=== PATIENT | female | born 1950 | race Caucasian/White ===

== ENCOUNTER 2025-03-23 05:52 | Day surgery (SDC) | payer MEDICARE, OTHER ==
[2025-03-22 11:16] VITALS: BMI 21.4
[2025-03-23] MEDS ORDERED: Lidocaine 1% w/Epinephrine 1:200K 30 ML VIAL ONE (06:16)
[2025-03-23] MEDS ORDERED: SUGAMMADEX SODIUM 200 MG/2 ML VIAL ONE (06:24)
[2025-03-23] MEDS ORDERED: Lidocaine 1% PF 5 ML VIAL ONE (06:24)
[2025-03-23] MEDS ORDERED: PROPOFOL 20 ML ONE (06:24)
[2025-03-23] MEDS ORDERED: Rocuronium Bromide 10 MG/ML (10ML VIAL) ONE (06:24)
[2025-03-23] MEDS ORDERED: Ondansetron PF 4 MG/2 ML Vial ONE (06:24)
== END 2025-03-23 11:28 | disposition home or self-care (01) ==
LOC: CSHSDC 05:52
PROVIDERS: ATTEND Otolaryngology Plastic Surgery within the Head & Neck
PROC: 099600Z Drainage of Left Middle Ear with Drainage Device, Open Approach (ICD-10-PCS; principal; 2025-03-23)
PROC: 099500Z Drainage of Right Middle Ear with Drainage Device, Open Approach (ICD-10-PCS; 2025-03-23)
DX: H90.3 Sensorineural hearing loss, bilateral (principal); I10 Essential (primary) hypertension; Z88.0 Allergy status to penicillin; Z88.1 Allergy status to other antibiotic agents; Z88.2 Allergy status to sulfonamides; Z79.899 Other long term (current) drug therapy
CPT/HCPCS: 69930; 93005; J0169; J1100; J2405; J2704; J3010; J3490; L8614; 93010